=== PATIENT | female | born 1995 | race Caucasian/White ===

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

== ENCOUNTER → 2017-01-08 | Outpatient (CLI) | payer BC, OTHER ==
--- NOTE | 2017-01-09 09:10 | REP ---
MRI BRAIN WITHOUT CONTRAST: 01/08/2017. COMPARISON: CT brain 09/21/2015, MRI brain 12/22/2014. CLINICAL HISTORY: Status post occipital craniectomy for cerebellar tonsillar ectopia. TECHNIQUE: Sagittal T1 with axial T1, T2, FLAIR, diffusion weighted images and ADC mapping sequences. FINDINGS: Ventricles are midline, but no dilatation of the lateral ventricles or displacement. Third and fourth ventricles were unremarkable. Basal ganglia are symmetric and normal. Grewal white junction differentiation well maintained. There are no hyperintense T2 or FLAIR foci in the periventricular deep white matter tracts or subcortical regions in either hemisphere. Cortical stripe is preserved. There is no atrophy, hemorrhage, mass, mass effect or vascular territory infarct. Diffusion weighted images and the ADC mapping sequences show no evidence of restricted water diffusion or acute ischemia. No signal abnormality in the brainstem or cerebellum. The seventh/eighth cranial nerve complexes and mastoids are unremarkable except for a small focus of hyperintense signal in posterior left mastoids as before. The orbits and contents, visualized sinuses intact. Corpus callosum, optic chiasm and pituitary unchanged. Sagittal images show suboccipital craniectomy with prosthetic bone flap with ample subarachnoid space at the craniocervical junction. There appears to have been resection of the posterior arch of C1 as well. Superficial to the prosthetic flap is a fluid collection deep to the posterior muscle layer at the craniocervical junction. It is similar intensity to CSF on the T2 images. It is slightly hyperintense to CSF on the T1 sagittal sequence. There are some micrometallic magnetic susceptibility artifacts in the subcutaneous and muscle layer posteriorly at the surgical site. There are no other findings. IMPRESSION: 1. Status post suboccipital craniectomy with prosthetic bone flap and creation of an ample subarachnoid space at the craniocervical junction. No signal abnormality in the brain stem, cord or cerebellum. 2. Some fluid superficial to the prosthetic bone flap at the craniectomy site which appears deep to the muscle layer. The dura and flap separate it from the CSF on the sagittal images. Appearances suggest seroma. 3. No intracranial hemorrhage, edema, ventriculomegaly or white matter tract abnormality in the cerebral and cerebellar hemispheres nor other significant finding. Signed by Mike Morales MD 01/09/2017 02:44 P
== END ==
LOC: M RAD 17:55
PROVIDERS: ATTEND Neurological Surgery
DX: G93.9 Disorder of brain, unspecified (principal)

== ENCOUNTER → 2022-06-05 | Outpatient (CLI) | payer BC, OTHER | LOC: M WUC 13:05 | PROVIDERS: ATTEND Physician Assistant | DX: M79.671 Pain in right foot (principal) ==

== ENCOUNTER → 2022-07-08 | Outpatient (CLI) | payer BC, OTHER | LOC: M RAD 11:06 | PROVIDERS: ATTEND Physician Assistant | DX: R93.89 Abnormal findings on diagnostic imaging of other specified body structures (principal); Z98.890 Other specified postprocedural states ==

== ENCOUNTER → 2022-07-09 | Outpatient (CLI) | payer BC, OTHER | LOC: M CLY 09:32 | PROVIDERS: ATTEND Physician Assistant | DX: R93.89 Abnormal findings on diagnostic imaging of other specified body structures (principal); Z97.8 Presence of other specified devices ==

== ENCOUNTER → 2022-09-03 | Outpatient (REF) | payer OTHER ==
[2022-09-03 17:31] LABS: BASO % 0.8 % (0.0-1.0); EOS # 0.1 10^3/uL (0.0-0.5); EOS % 1.7 % (0.0-3.0); HEMATOCRIT 41.5 % (36.0-47.0); HEMOGLOBIN 13.7 g/dl (12.0-15.5); LYMPH # 1.4 10^3/uL (1.5-5.0); LYMPH % 29.9 % (24.0-44.0); MEAN CORPUSCULAR HEMOGLOBIN 30.6 pg (27.0-33.0); MEAN CORPUSCULAR VOLUME 92.6 fl (80.0-96.0); MONO # 0.3 10^3/uL (0.0-0.8); MONO % 7.1 % (2.0-8.0); NEUTROPHILS # 2.9 10^3/uL (1.5-8.5); NEUTROPHILS % 60.5 % (36.0-66.0); PLATELET COUNT, AUTOMATED 357 10^3/uL (150-450); RED BLOOD COUNT 4.48 10^6/uL (4.00-5.40); WHITE BLOOD COUNT 4.8 10^3/uL (4.0-10.0)
[2022-09-03 17:58] LABS: ALBUMIN 3.5 G/DL (3.2-5.2); ALKALINE PHOSPHATASE 54 U/L (46-116); ALT/SGPT 14 U/L (7.0-40); AST/SGOT 17 U/L (<34); BILIRUBIN,TOTAL 0.6 MG/DL (0.3-1.2); BLOOD UREA NITROGEN 8 MG/DL (9-23); CALCIUM LEVEL 8.9 MG/DL (8.5-10.1); CARBON DIOXIDE LEVEL 24 MMOL/L (20-31); CHLORIDE LEVEL 107 MMOL/L (98-107); CREATININE FOR GFR 0.69 MG/DL (0.55-1.30); GLOMERULAR FILTRATION RATE > 60.0 (>60); GLUCOSE, FASTING 82 MG/DL (60-100); POTASSIUM SERUM 4.3 MMOL/L (3.5-5.1); SODIUM LEVEL 140 MMOL/L (136-145); TOTAL PROTEIN 6.4 G/DL (5.7-8.2)
[2022-09-03 17:59] LABS: C REACTIVE PROTEIN QUANTITATIV < 0.40 MG/DL (<1.0)
[2022-09-03 18:01] LABS: THYROID STIMULATING HORMONE 2.667 uIU/ML (0.55-4.78)
[2022-09-03 18:03] LABS: RHEUMATOID FACTOR QUANT 5.4 IU/ML (<14)
[2022-09-03 18:36] LABS: ERYTHROCYTE SEDIMENTATION RATE 11 mm/hr (0-20)
[2022-09-04 14:42] LABS: TOTAL 25(OH) VITAMIN D 17.8 NG/ML (20.0-100.0)
[2022-09-05 21:07] LABS: ANA (HEP2) Negative (.)
== END ==
LOC: M SFHCCAPE 10:21
PROVIDERS: ATTEND Physician Assistant
DX: M25.50 Pain in unspecified joint (principal); R79.89 Other specified abnormal findings of blood chemistry; R53.83 Other fatigue

== ENCOUNTER → 2022-11-27 | Outpatient (REF) | payer OTHER | LOC: M SFHCCAPE 11:05 | PROVIDERS: ATTEND Physician Assistant | DX: E55.9 Vitamin D deficiency, unspecified (principal) ==

== ENCOUNTER → 2024-12-07 | Outpatient (REF) | payer BC ==
[2024-12-07 17:26] LABS: BASO % 0.5 % (0.0-1.0); EOS % 0.5 % (0.0-3.0); HEMATOCRIT 41.4 % (36.0-47.0); HEMOGLOBIN 13.4 g/dl (12.0-15.5); LYMPH % 31.6 % (24.0-44.0); MEAN CORPUSCULAR HEMOGLOBIN 30.4 pg (27.0-33.0); MEAN CORPUSCULAR HGB CONC 32.4 g/dl (32.0-36.5); MEAN CORPUSCULAR VOLUME 93.9 fl (80.0-96.0); MONO # 0.3 10^3/uL (0.0-0.8); MONO % 5.4 % (2.0-8.0); NEUTROPHILS # 3.9 10^3/uL (1.5-8.5); NEUTROPHILS % 61.8 % (36.0-66.0); PLATELET COUNT, AUTOMATED 356 10^3/uL (150-450); RED BLOOD COUNT 4.41 10^6/uL (4.00-5.40); WHITE BLOOD COUNT 6.3 10^3/uL (4.0-10.0)
[2024-12-07 17:42] LABS: BLOOD UREA NITROGEN 15 MG/DL (9-23); CALCIUM LEVEL 9.2 MG/DL (8.5-10.1); CARBON DIOXIDE LEVEL 30 MMOL/L (20-31); CHLORIDE LEVEL 104 MMOL/L (98-107); CREATININE FOR GFR 0.71 MG/DL (0.55-1.30); GLOMERULAR FILTRATION RATE > 90.0 (>60); GLUCOSE, FASTING 88 MG/DL (60-100); POTASSIUM SERUM 4.9 MMOL/L (3.5-5.1); SODIUM LEVEL 141 MMOL/L (136-145)
[2024-12-07 17:47] LABS: HCG, SERUM QUALITATIVE NEGATIVE (NEGATIVE)
== END ==
LOC: M SFHCCAPE 11:09
PROVIDERS: ATTEND Physician Assistant Medical
DX: Z00.00 Encounter for general adult medical examination without abnormal findings (principal); N92.6 Irregular menstruation, unspecified; F41.8 Other specified anxiety disorders